=== PATIENT | male | born 1930 | race Caucasian/White ===

== ENCOUNTER 2016-10-26 17:33 | Inpatient (IN) | payer MEDICARE, OTHER ==
[~2016-10-26] VITALS: Ht 182.9 cm; Wt 63.2 kg
[2016-10-26 17:46] VITALS: BP 143/76; PULSE 60; RESP 14; O2SAT 100
[2016-10-26 17:55] VITALS: BP 143/76; PULSE 69; RESP 14; O2SAT 100
--- NOTE | 2016-10-26 18:06 | ED.REPORT ---
HPI-Trauma Minor / Fall Date of Service Oct 26, 2016 ED Provider: Josefina Baumann MD 86 year old male with a hx of Cerebral Amyloid Angiopathy, Multiple CVA's 2009, Lewy body dementia and HTN who presents to the ED via EMS from [facility] following a GLF today. The pt was sitting in a chair with a home performance laborer in the room when he fell backwards and landed on his head. The fall was not directly witnessed but the home performance laborer was at his side immediately after the fall. LOC is unknown. Pt has had no episodes of vomiting. Pt had a fall a few days ago as well. Pt is not on anticoagulants due to previous strokes. En route the patient complained of back pain, but family believes that this was positional because he has had no complaints in the ED. Pt's is at bedside and is able to give a history. Pt is unable to give any history due to his dementia. Nursing Notes Stated Complaint: GLF Chief Complaint: Head, Face, Neck Trauma Nursing Notes Reviewed: Yes Allergies: Coded Allergies: Wheat (Verified Allergy, Severe, HIVES, AIRWAY CLOSURE, 10/26/16) Scheduled Atorvastatin (Lipitor) 40 Mg Tablet 40 MG PO QPM Citalopram (Citalopram) 10 Mg Tablet 10 MG PO DAILY Haloperidol (Haloperidol) 0.5 Mg Tablet 0.5 MG PO QAM Haloperidol (Haloperidol) 0.5 Mg Tablet 0.5 MG PO at 1400 daily Haloperidol (Haloperidol) 0.5 Mg Tablet 1 MG PO HS Lamotrigine (Lamotrigine) 25 Mg Tablet 50 MG PO BID Memantine HCl (Memantine HCl) 5 Mg Tablet 5 MG PO BID Trazodone (Trazodone) 50 Mg Tablet 50 MG PO HS General Time Seen by MD: 18:03 Chief Complaint Head injury Hx Obtained From: Spouse, EMS Arrived By: Ambulance Onset Occurred: Just prior to arrival Symptom Duration: Since onset Caused by: Fall on ground Location: Head Severity: Current: Mild Associated with: Denies: Loss of consciousness, Vomiting Similar Sx Previous: Yes Risk Factors IC Bleed Risk Stratification Age (<1 yr or >60 yrs) Prior epidural bleed Risk factors reviewed Head CT Imaging Inclusion Criteria: >/= 16 yo age Presentation w/in 24 hrs. RF Statements: Risk factors reviewed Past Medical History Past Medical History Cerebral Amyloid Angiopathy Multiple CVA 2010 Lewy body dementia Reports: Hypertension Past Surgical History Reports: Cholecystectomy Reports: Pacemaker insertion Smoking History Former Smoker Social History Alcohol Use: Denies alcohol use Drug Use: Denies drug use Review of Systems Unable to Obtain ROS Patient condition, Mental status Respiratory: Denies: Shortness of breath GI: Denies: Vomiting Physical Exam Initial Vital Signs Vital Signs (First) Date Time Temp Pulse Resp B/P Pulse Ox O2 Delivery O2 Flow Rate FiO2 10/26/16 17:46 36.6 60 14 143/76 100 Room Air Initial VS: Reviewed, Vital signs normal ENT: Conjunctiva normal, No scleral icterus Respiratory: Breath sounds normal, Clear to auscultation, No respiratory distress Cardiovascular: Regular rate & rhythm, Heart sounds normal, Intact distal pulses Abdomen / GI: Soft, Non-tender Extremities: Vascular intact, Neuro intact Skin: Warm, Dry, No cyanosis Neurologic: Alert General/Constitutional: Awake, Alert Neck: Supple, Full range of motion, No midline vertebral tend Head / Eyes: Normocephalic, PERRL 2cm hematoma to the R occipital area. Slight oozing of blood. Back: Inspection NL, No midline vertebral tend Interpretation & Diagnostics CT Head Interpretation IMPRESSION: 1. Right posterior parietal scalp soft tissue swelling, as well as 2 foci of contrecoup posttraumatic subarachnoid hemorrhage adjacent to the anterior left frontal pole. 2. Moderate cerebral volume loss for age. Diffuse periventricular and deep white matter chronic small vessel ischemic change. Findings discussed with Dr. Baumann on 1852 hours on October 26, 2016. Dictated by: Michi Wray M.D. on 10/26/2016 at 18:53 Study: Head CT no contrast Interpretation / Wet Read by: Interpret - Radiologist CT C-Spine Interpretation IMPRESSION: No acute bony injuries of the cervical and upper thoracic spine from the foramen magnum to the T4 level. Dictated by: Michi Wray M.D. on 10/26/2016 at 18:56 Study type: CT no contrast Interpretation / Wet Read by: Interpret - Radiologist Re-Eval/Medical Decision Med Decision/Clinical Course This patient had a fall and was found to have a tramatic subarachnoid hemorrhage , he does not appear to be in discomfort. In speaking with his it was decided to admit him for observation here and repeat CT scan, and any procedures anyone to be comfortable. Re-Evaluation/Progress : Time of Eval: 18:56 Re-Evaluation/Progress Note: updated of imaging results. Needs to talk to family to discuss further care.Pt and family do not want any procedures, they would like to stay here and not be transfered. Will make further decisions based on if he improves or not. Consultation : Referral / Consult Name: Crista Pérez MD Consulted With: Hospitalist Call Returned at: 19:29 Retail Services Professional: Will see patient, Agrees with eval, Agrees with plan, Accepts admit Counseled Regarding: Diagnosis, Need for admission Discharge & Departure Impression: Primary Impression: Subarachnoid hemorrhage Additional Impression: Dementia Dementia type: Lewy body dementia Dementia behavioral disturbance: with behavioral disturbance Qualified Code: G31.83 - Dementia with Lewy bodies Disposition: ADMITTED TO HOSPITAL Discharge Condition All VS Reviewed: Yes Scribe Attestation Portions of this note were transcribed by Dorene Azar. I, (Dr. Baumann) personally performed the history, physical exam and medical decision-making; I reviewed and confirmed the accuracy of the information in the transcribed note. Signed by: Dorene Azar. 10/26/2016, 1945 Josefina Baumann MD Oct 26, 2016 18:06 Dorene Azar Oct 26, 2016 18:13
--- NOTE | 2016-10-26 18:55 | DRSVH ---
PROCEDURE: CT BRAIN WITHOUT CONTRAST ([id number]) INDICATIONS: 86 year-old male status post ground level fall with posterior head laceration. TECHNIQUE: Noncontrast 4.5 mm thick angled axial sections acquired from the foramen magnum to the vertex, with c oronal reformats. COMPARISON: None. FINDINGS: Image quality: Several images are degraded by patient motion. CSF spaces: Basal cisterns are patent. 2 separate foci of hyperdense subarachnoid hemorrhage lie adj acent to the anterior left frontal pole. The ventricles are symmetric in size and shape. Brain: No intracranial bleeds or masses. There is moderate cerebral volume loss for age, with resul tant ventricular and sulcal prominence. There are diffuse periventricular and deep white matter [employer] sera small vessel ischemic changes. There is minimal intracranial internal carotid artery atheroscler osis. Skull and face: Calvarium and visualized facial bones appear intact, without suspicious lesions. The re is right posterior parietal scalp soft tissue swelling. Sinuses: Visualized sinuses and mastoids are clear. IMPRESSION: 1. Right posterior parietal scalp soft tissue swelling, as well as 2 foci of contrecoup posttraumatic subarachnoid hemorrhage adjacent to the anterior left frontal pole. 2. Moderate cerebral volume loss for age. Diffuse periventricular and deep white matter chronic small vessel ischemic change. Findings discussed with Dr. Baumann on 1852 hours on October 26, 2016. Dictated by: Michi Wray M.D. on 10/26/2016 at 18:53 Approved by: Michi Wray M.D. on 10/26/2016 at 18:53
--- NOTE | 2016-10-26 18:58 | DRSVH ---
PROCEDURE: CT CERVICAL SPINE WITHOUT CONTRAST ([id number]) INDICATIONS: 86 year-old male status post ground level fall. TECHNIQUE: Noncontrast 3 mm thick sections acquired from the skull base to the T4 level. Sagittal and coronal r eformats were then constructed. For radiation dose reduction, the following was used: automated exp osure control, adjustment of mA and/or kV according to patient size. COMPARISON: None. FINDINGS: Image quality: Excellent. Bones: No fractures or dislocations. There is multilevel cervical spine disc degeneration, as well as facet joint degeneration. Coronal images demonstrate cervical thoracic spine dextroscoliosis. Visu alized superior ribs are intact. Soft tissues: Prevertebral soft tissues are normal in thickness. No paravertebral hematomas. No ap ical pneumothoraces. There is bilateral carotid bifurcation atherosclerosis. IMPRESSION: No acute bony injuries of the cervical and upper thoracic spine from the foramen magnum t o the T4 level. Dictated by: Michi Wray M.D. on 10/26/2016 at 18:56 Approved by: Michi Wray M.D. on 10/26/2016 at 18:56
[2016-10-26 20:59] VITALS: BP 131/84; PULSE 88; RESP 20; O2SAT 99
[2016-10-26] MEDS ORDERED: Ondansetron 2 mg/mL 2 mL Inj IVPUSH PRN (21:00)
[2016-10-26] MEDS ORDERED: Alum-Mag Hydrox-Simeth 30 mL Suspension PO PRN (21:00)
[2016-10-26] MEDS ORDERED: Polyethylene Glycol (PEG) 17 Gm Powder PO PRN (21:30)
[2016-10-26 21:37] VITALS: BP 147/83; PULSE 68; RESP 18; O2SAT 97
--- NOTE | 2016-10-26 21:57 | PCM.HPMED ---
Subjective Date of Service Oct 26, 2016 Primary Provider: Admitting Physician: Crista Pérez MD Primary Care Physician: Janiya Hobbs MD Attending Physician: Crista Pérez MD Admit Status: From the Emergency Department Chief Complaint: Fall with acute right occipital contusion and left contrecoup subarachnoid hemorrhage History of Present Illness: This is a 86-year-old male with recently progressing dementia who just moved into an assisted living secure unit at [facility] in [place]. Today, in the dining room, he was witnessed to fall out of his chair onto his right occiput. There is no loss of consciousness. There was some bleeding and so he was brought to the emergency department where he was noted to have an abrasion of the right occiput and a small contrecoup subarachnoid hemorrhage of the left frontal area. He is now admitted for observation of this intracerebral bleed and potential discharge back to his assisted living tomorrow. If there is progression neurologically then a neurology consult should be considered in the context of no significant intervention being appropriate at his stage of dementia. Review of Systems: There has been no reported fevers, muscle aches, seizures, new rash, chest pain , shortness of breath, coughing, bleeding, dysuria, new allergies, vomiting, abdominal pain, diarrhea. Allergies Coded Allergies: Wheat (Verified Allergy, Severe, HIVES, AIRWAY CLOSURE, 10/26/16) Home Medications No medication list is available. PMH Lewy body dementia Cerebral amyloid angiopathy Surgical History Appendectomy Cholecystectomy Nonoperative severe chest injury in fall Family History Multiple family members have of DVT/PE. Positive family history of cancer and CVA. Social History Occupation: retired [employer] Hx Alcohol Use: No Hx Substance Use: No Smoking Status: Former Smoker Living Arrangement: Assisted Living ([facility] in [place]) Exam Vital Signs Vital Sign - Last Date Time Temp Pulse Resp B/P Pulse Ox O2 Delivery O2 Flow Rate FiO2 10/26/16 20:59 36.5 88 20 131/84 99 Room Air Exam The patient is confused and talking nonsensically. He follows directions intermittently, and basically only when his of 49 years is speaking directly to him. Pupils are equally round and reactive to light and accommodation. Extraocular muscles cannot be accurately tested due to his lack of understanding. Sclera are pink and nonicteric. Throat looks normal. No lymph nodes are felt her, neck, supraclavicular area. There is no thyromegaly. JVD is less than 6 cm. No carotid bruits are heard. Heart is irregularly irregular without murmur. Lungs are clear to auscultation bilaterally Abdomen is soft, bowel sounds are positive, there is no organomegaly, there is no masses, there is no tenderness. There is a midline incisional scar. Extremities have no ankle edema Skin there is no jaundice or rash. There is a recently bleeding abrasion to the right occiput. Neuro exam is noted for profound dementia. DTRs are symmetric. Babinski's are downgoing bilaterally. There is no tremor. Lab and Diagnostics X-Rays, CTs and MRIs CT BRAIN WITHOUT CONTRAST ([id number]) INDICATIONS: 86 year-old male status post ground level fall with posterior head laceration. TECHNIQUE: Noncontrast 4.5 mm thick angled axial sections acquired from the foramen magnum to the vertex, with coronal reformats. COMPARISON: None. FINDINGS: Image quality: Several images are degraded by patient motion. CSF spaces: Basal cisterns are patent. 2 separate foci of hyperdense subarachnoid hemorrhage lie adjacent to the anterior left frontal pole. The ventricles are symmetric in size and shape. Brain: No intracranial bleeds or masses. There is moderate cerebral volume loss for age, with resultant ventricular and sulcal prominence. There are diffuse periventricular and deep white matter chronic small vessel ischemic changes. There is minimal intracranial internal carotid artery atherosclerosis. Skull and face: Calvarium and visualized facial bones appear intact, without suspicious lesions. There is right posterior parietal scalp soft tissue swelling. Sinuses: Visualized sinuses and mastoids are clear. IMPRESSION: 1. Right posterior parietal scalp soft tissue swelling, as well as 2 foci of contrecoup posttraumatic subarachnoid hemorrhage adjacent to the anterior left frontal pole. 2. Moderate cerebral volume loss for age. Diffuse periventricular and deep white matter chronic small vessel ischemic change. Findings discussed with Dr. Baumann on 1852 hours on October 26, 2016. Additional Diagnostics: CT CERVICAL SPINE WITHOUT CONTRAST ([id number]) INDICATIONS: 86 year-old male status post ground level fall. TECHNIQUE: Noncontrast 3 mm thick sections acquired from the skull base to the T4 level. Sagittal and coronal reformats were then constructed. For radiation dose reduction, the following was used: automated exposure control, adjustment of mA and/or kV according to patient size. COMPARISON: None. FINDINGS: Image quality: Excellent. Bones: No fractures or dislocations. There is multilevel cervical spine disc degeneration, as well as facet joint degeneration. Coronal images demonstrate cervical thoracic spine dextroscoliosis. Visualized superior ribs are intact. Soft tissues: Prevertebral soft tissues are normal in thickness. No paravertebral hematomas. No apical pneumothoraces. There is bilateral carotid bifurcation atherosclerosis. IMPRESSION: No acute bony injuries of the cervical and upper thoracic spine from the foramen magnum to the T4 level. Assessment & Plan 1 - right occipital contusion/left frontal subarachnoid hemorrhage Observe for progression of neurological signs/worsening hemorrhage. If stable then plan transfer back to assisted living secure unit in [place]. 2 - Lewy body dementia This has recently been progressing. He moved into the secure unit 5 days ago. He has apparently failed a recent trial of Namenda.. 3 - family history of blood clots Unable to treat with Lovenox or heparin due to the intracerebral hemorrhage. We will apply compression stockings. Dave Pérez MD Resuscitation Status: DNR/DNI:Do Not Resuscitate/Intubate Crista Pérez MD Oct 26, 2016 21:36
--- NOTE | 2016-10-26 22:14 | NUR ---
ADMIT: Pt. arrived to [facility] from the ED via stretcher. Transferred to bed with sliding board. Pt. confused and disoriented, with Hx of advanced dementia. Has head laceration with some bleeding back of the head and a bump with red bruising above that laceration. Pt. is talkative but does not make sense due to his dementia. Pt's states he has hallucinations often, he is also hallucinating at this time. Sitter at his side for safety. Addendum: 10/27/16 at 0324 by AHMET ZHU RN (NELLY) ADDENDUM: Pt. has a 1:1 sitter at his side at all times for his safety, also the [facility] bed alarm is in place.
[2016-10-26] MEDS ORDERED: LAMO25TA PO (22:33)
[2016-10-26] MEDS ORDERED: LIP40 PO (22:33)
[2016-10-26] MEDS ORDERED: TRAZ-115 PO (22:33)
[2016-10-26] MEDS ORDERED: HAL05 PO ×3 (22:33)
[2016-10-26] MEDS ORDERED: NAM10 PO (22:33)
[2016-10-26] MEDS ORDERED: CITA10TA9 PO (22:33)
[2016-10-26] MEDS ORDERED: MEMA5TAB15 PO (23:07)
[2016-10-27] VITALS (8 sets, daily range): BP systolic 123–160; BP diastolic 70–92; PULSE 60–78; RESP 16–19; O2SAT 92–100
[2016-10-27] MEDS: 0.9% Sodium Chloride 1,000 ML IV SCH ×2 (01:25→12:03)
[2016-10-27 05:43] LABS: BASOPHILS % (AUTO) 0 % (0-3); EOSINOPHILS % (AUTO) 0.2 % (0-5); Mean Corpuscular Hemoglobin 30.7 pg (27.0-35.0); Mean Corpuscular Volume 92.3 fL (81-100); NEUTROPHILS % (AUTO) 75.3 % (40-74); Platelet Count 116 bil/L (150-400)
--- NOTE | 2016-10-27 08:56 | DRSVH ---
PROCEDURE: CT BRAIN WITHOUT CONTRAST INDICATIONS: subarachnoid bleed COMPARISON: [facility], CT, CT BRAIN WO CON, 10/26/2016, 18:20. FINDINGS: When compared to the study dated 10/26/16, the more superior left frontal focus of intracran ial hemorrhage has markedly increased in size. This region now measures 2.4 x 2.8 cm in the axial larry ne and previously measured 1.2 x 2.1 cm in the same plane. A the more inferior left frontal focus of subarachnoid hemorrhage is unchanged. No new intracranial hemorrhage. No midline shift. As 4, there i s severe changes associated with microvascular ischemia including extensive deep white matter and per iventricular changes, extensive volume loss, and right temporal encephalomalacia suggesting prior inf arct. Small subgaleal hemorrhage and soft tissue swelling overlies the right occipital bone, as before. IMPRESSION: 1. Increased size of the more superior focus of left frontal subarachnoid hemorrhage when compared wi th the study from yesterday. This finding was discussed with Dr. Gallardo at 8:54 AM on 10/27/16. Dictated by: Zhane Gruber M.D. on 10/27/2016 at 8:52 Approved by: Zhane Gruber M.D. on 10/27/2016 at 8:54
[2016-10-27 09:40] LABS: BASOPHILS % (AUTO) 0 % (0-3); EOSINOPHILS % (AUTO) 0.2 % (0-5); MONOCYTES % (AUTO) 7.2 % (4-12); Mean Corpuscular Volume 91.6 fL (81-100); NEUTROPHILS % (AUTO) 77.4 % (40-74); Platelet Count 108 bil/L (150-400)
[2016-10-27 09:50] LABS: INR 1.04 ratio
[2016-10-27 10:04] LABS: Magnesium 1.7 mg/dL (1.6-2.6); Phosphorus 2.7 mg/dL (2.5-4.9)
[2016-10-27] MEDS: lamoTRIgine 25 mg Tablet PO SCH ×2 (10:12→21:22)
--- NOTE | 2016-10-27 12:59 | NUR ---
Tests/mentation Patient remains fairly at baseline from history obtained. Patient with severe dementia and hallucinations at times which is how he is this am. Patient had Ct scan done today which showed increase in subarachnoid bleed so patient is to be moved to another room for care by a PCC nurse who can give ordered bp gtt . I spoke with on phone this am and has updated patients daughter on condition.
[2016-10-27] MEDS: NiCARdipine Inj 25 MG in Dextrose 5% 240 ML IV SCH ×3 (13:55→21:01)
--- NOTE | 2016-10-27 17:43 | NUR ---
BLOOD PRESSURE P-Patient has subarachnoid bleed, and orders for Nicardipine drip if BP greater 140/90. Patient has 1:1 sitter has pulled out his IV once and has dementia (LOC x!). At time uncooperative with care. I- Last BP's have been 142/90, 123/72, and 143/70. Nurse has not started drip. E- Will continue to take BP Q4, patient has just pulled out IV for second time, may require restraints if he is to require drip.
--- NOTE | 2016-10-27 18:10 | PCM.PNMED ---
Subjective Date of Service Oct 27, 2016 Subjective Patient continues to be confused. At baseline as per daughter at bedside. CT scan shows worsening of bleeding. Blood pressure uncontrolled overnight. Started amlodipine. Initially planned to start Cardene drip but blood pressure controlled now. called and requesting hospice evaluation. landing worker to call Hospice Exam Vital Signs Vital Sign - Last Date Time Temp Pulse Resp B/P Pulse Ox O2 Delivery O2 Flow Rate FiO2 10/27/16 16:30 36.6 72 16 143/70 92 Room Air Intake and Output 10/26/16 10/26/16 10/27/16 Cumulative From/Thru 15:00 23:00 07:00 10/26/16 17:55 - 10/27/16 06:00 Intake Total 877 ml 877 ml Balance 877 ml 877 ml Intake Oral 400 ml 400 ml IV Total 477 ml 477 ml # Voids 1 1 # Bowel Movements 0 0 Exam The patient is confused and talking nonsensically. He follows directions intermittently, and basically only when his of 49 years is speaking directly to him. Pupils are equally round and reactive to light and accommodation. Extraocular muscles cannot be accurately tested due to his lack of understanding. Sclera are pink and nonicteric. Throat looks normal. No lymph nodes are felt her, neck, supraclavicular area. There is no thyromegaly. JVD is less than 6 cm. No carotid bruits are heard. Heart is irregularly irregular without murmur. Lungs are clear to auscultation bilaterally Abdomen is soft, bowel sounds are positive, there is no organomegaly, there is no masses, there is no tenderness. There is a midline incisional scar. Extremities have no ankle edema Skin there is no jaundice or rash. There is a recently bleeding abrasion to the right occiput. Neuro exam is noted for profound dementia. DTRs are symmetric. Babinski's are downgoing bilaterally. There is no tremor. IVs and Medications Medications Reviewed: Medications were reviewed in detail Lab and Diagnostics Result Diagram: 10/27/1692910/27/16 0930 X-Rays, CTs and MRIs CT BRAIN WITHOUT CONTRAST ([id number]) INDICATIONS: 86 year-old male status post ground level fall with posterior head laceration. TECHNIQUE: Noncontrast 4.5 mm thick angled axial sections acquired from the foramen magnum to the vertex, with coronal reformats. COMPARISON: None. FINDINGS: Image quality: Several images are degraded by patient motion. CSF spaces: Basal cisterns are patent. 2 separate foci of hyperdense subarachnoid hemorrhage lie adjacent to the anterior left frontal pole. The ventricles are symmetric in size and shape. Brain: No intracranial bleeds or masses. There is moderate cerebral volume loss for age, with resultant ventricular and sulcal prominence. There are diffuse periventricular and deep white matter chronic small vessel ischemic changes. There is minimal intracranial internal carotid artery atherosclerosis. Skull and face: Calvarium and visualized facial bones appear intact, without suspicious lesions. There is right posterior parietal scalp soft tissue swelling. Sinuses: Visualized sinuses and mastoids are clear. IMPRESSION: 1. Right posterior parietal scalp soft tissue swelling, as well as 2 foci of contrecoup posttraumatic subarachnoid hemorrhage adjacent to the anterior left frontal pole. 2. Moderate cerebral volume loss for age. Diffuse periventricular and deep white matter chronic small vessel ischemic change. Findings discussed with Dr. Baumann on 1852 hours on October 26, 2016. ROCEDURE: CT BRAIN WITHOUT CONTRAST INDICATIONS: subarachnoid bleed COMPARISON: [facility], CT, CT BRAIN WO CON, 10/26/2016, 18:20. FINDINGS: When compared to the study dated 10/26/16, the more superior left frontal focus of intracranial hemorrhage has markedly increased in size. This region now measures 2.4 x 2.8 cm in the axial plane and previously measured 1.2 x 2.1 cm in the same plane. A the more inferior left frontal focus of subarachnoid hemorrhage is unchanged. No new intracranial hemorrhage. No midline shift. As 4, there is severe changes associated with microvascular ischemia including extensive deep white matter and periventricular changes, extensive volume loss, and right temporal encephalomalacia suggesting prior infarct. Small subgaleal hemorrhage and soft tissue swelling overlies the right occipital bone, as before. IMPRESSION: 1. Increased size of the more superior focus of left frontal subarachnoid hemorrhage when compared with the study from yesterday. This finding was discussed with Dr. Gallardo at 8:54 AM on 10/27/16. Dictated by: Zhane Gruber M.D. on 10/27/2016 at 8:[address] CERVICAL SPINE WITHOUT CONTRAST ([id number]) INDICATIONS: 86 year-old male status post ground level fall. TECHNIQUE: Noncontrast 3 mm thick sections acquired from the skull base to the T4 level. Sagittal and coronal reformats were then constructed. For radiation dose reduction, the following was used: automated exposure control, adjustment of mA and/or kV according to patient size. COMPARISON: None. FINDINGS: Image quality: Excellent. Bones: No fractures or dislocations. There is multilevel cervical spine disc degeneration, as well as facet joint degeneration. Coronal images demonstrate cervical thoracic spine dextroscoliosis. Visualized superior ribs are intact. Soft tissues: Prevertebral soft tissues are normal in thickness. No paravertebral hematomas. No apical pneumothoraces. There is bilateral carotid bifurcation atherosclerosis. IMPRESSION: No acute bony injuries of the cervical and upper thoracic spine from the foramen magnum to the T4 level. Assessment & Plan 1 - right occipital contusion/left frontal subarachnoid hemorrhage -Continued bleeding or repeat CT scan. -Blood pressure uncontrolled overnight. Started amlodipine. Initially planned to start Cardene drip but blood pressure controlled now. Cardene drip available at bedside. Will start if blood pressure uncontrolled. called and requesting hospice evaluation. She lives in the same facility with him. She wants him back to the same facility upon discharge. landing worker to call Hospice -No blood thinners reverse. INR 1 -Neurochecks every 4 2 - Lewy body dementia This has recently been progressing. He moved into the secure unit 5 days ago. He has apparently failed a recent trial of Namenda.. 3 - family history of blood clots Unable to treat with Lovenox or heparin due to the intracerebral hemorrhage. We will apply compression stockings. Disposition: 1-2 days, if blood pressure remains controlled and CT control shows stable hematoma. Hospice Evaluation pending Resuscitation Status: DNR/DNI:Do Not Resuscitate/Intubate Lauri Corona MD Oct 27, 2016 18:10
--- NOTE | 2016-10-27 20:22 | NUR ---
BP Md made aware of BP 152/85 and 152/80. Unable to start IV Nicardipine on this floor and need CCU care for that. Md agreed and order to transfer to CCU noted. Report given to Yokasta. Will transfer to room 2020
--- NOTE | 2016-10-27 20:46 | NUR ---
Transfer to 2020 Pt transferred with all meds, chart and belonging to room 2020. Transfer care to [facility].
--- NOTE | 2016-10-27 22:11 | NUR ---
Transfer note: Pt received into room 2020 at 2045 from [facility] room 1019 per bed. Pt was lift onto CCU bed and made comfortable. Pt is very combative swings fist and arm trying to hit staff and kicks legs at staff swearing and yelling. Pt has bilateral soft wrist restraints in place due to combativeness and pulling out IVs. Pt has pulled 2 IVs out prior to transfer. Monitor applied shows A-fib with occasional paced beat. Pt has brief on and is incontinent of urine. BP is 150s/90s and Nicardipine gtt was started as ordered at 5mg/hr BPs have dropped down into range goal is to keep BP below 140/90 due to subarachnoid bleed in the frontal area. Pt was given PO haldol 1mg and trazodone. will continue to assess agitation and uncooperativeness.
[2016-10-27] MEDS ORDERED: Haloperidol 5 mg/mL Inj IM ONE (22:50)
[2016-10-28] VITALS (8 sets, daily range): BP systolic 107–140; BP diastolic 58–78; PULSE 55–91; RESP 10–22; O2SAT 92–99
[2016-10-28] MEDS: NiCARdipine Inj 25 MG in Dextrose 5% 240 ML IV SCH ×3 (00:51→09:09)
[2016-10-28] MEDS: lamoTRIgine 25 mg Tablet PO SCH ×2 (08:47→22:12)
--- NOTE | 2016-10-28 10:52 | NUR ---
Spoke with Krys at [place] and she is aware patient is coming back to Memory Care unit there and they can only accept if Hospice is agreed upon and they will accept the day hospice can open but not before. Patient will also need to move up to the next level of care due to recent falls. In the month of September there was 17 falls. has been informed about these changed by the facility. Hospice will be in to meet with family and patient today. Updated CUTTER HAND
--- NOTE | 2016-10-28 12:37 | NUR ---
Narcadamine Narcadamine drip turned off this am around 0900. BP currently 107/63. Transfer out of CCU and moved to room 2030. Report given to Rebecca Thompson RN.
--- NOTE | 2016-10-28 15:41 | PCM.PNMED ---
Subjective Date of Service Oct 28, 2016 Subjective The patient unable to speak. Severe dementia and a recent subarachnoid hemorrhage. ROS and subjective not obtainable Exam Vital Signs Vital Sign - Last Date Time Temp Pulse Resp B/P Pulse Ox O2 Delivery O2 Flow Rate FiO2 10/28/16 11:49 36.7 62 18 124/75 92 Room Air Intake and Output 10/27/16 10/27/16 10/28/16 Cumulative From/Thru 15:00 23:00 07:00 10/26/16 17:55 - 10/28/16 05:19 Intake Total 450 ml 490 ml 1817 ml Balance 450 ml 490 ml 1817 ml Intake Oral 450 ml 100 ml 950 ml IV Total 390 ml 867 ml # Voids 3 2 6 # Bowel Movements 0 0 Exam Patient appears to be comfortable. Spell is normal Lungs are clear, normal effort. Heart is regular without murmur gallop or rub Abdomen is soft nondistended Extremities are free of edema. The pedal and radial pulses. Patient moves all arms and legs to noxious stimuli. IVs and Medications Medications Reviewed: Medications were reviewed in detail Lab and Diagnostics Result Diagram: 10/27/16 0930 10/27/16 0930 X-Rays, CTs and MRIs CT BRAIN WITHOUT CONTRAST ([id number]) INDICATIONS: 86 year-old male status post ground level fall with posterior head laceration. TECHNIQUE: Noncontrast 4.5 mm thick angled axial sections acquired from the foramen magnum to the vertex, with coronal reformats. COMPARISON: None. FINDINGS: Image quality: Several images are degraded by patient motion. CSF spaces: Basal cisterns are patent. 2 separate foci of hyperdense subarachnoid hemorrhage lie adjacent to the anterior left frontal pole. The ventricles are symmetric in size and shape. Brain: No intracranial bleeds or masses. There is moderate cerebral volume loss for age, with resultant ventricular and sulcal prominence. There are diffuse periventricular and deep white matter chronic small vessel ischemic changes. There is minimal intracranial internal carotid artery atherosclerosis. Skull and face: Calvarium and visualized facial bones appear intact, without suspicious lesions. There is right posterior parietal scalp soft tissue swelling. Sinuses: Visualized sinuses and mastoids are clear. IMPRESSION: 1. Right posterior parietal scalp soft tissue swelling, as well as 2 foci of contrecoup posttraumatic subarachnoid hemorrhage adjacent to the anterior left frontal pole. 2. Moderate cerebral volume loss for age. Diffuse periventricular and deep white matter chronic small vessel ischemic change. Findings discussed with Dr. Baumann on 1852 hours on October 26, 2016. ROCEDURE: CT BRAIN WITHOUT CONTRAST INDICATIONS: subarachnoid bleed COMPARISON: [facility], CT, CT BRAIN WO CON, 10/26/2016, 18:20. FINDINGS: When compared to the study dated 10/26/16, the more superior left frontal focus of intracranial hemorrhage has markedly increased in size. This region now measures 2.4 x 2.8 cm in the axial plane and previously measured 1.2 x 2.1 cm in the same plane. A the more inferior left frontal focus of subarachnoid hemorrhage is unchanged. No new intracranial hemorrhage. No midline shift. As 4, there is severe changes associated with microvascular ischemia including extensive deep white matter and periventricular changes, extensive volume loss, and right temporal encephalomalacia suggesting prior infarct. Small subgaleal hemorrhage and soft tissue swelling overlies the right occipital bone, as before. IMPRESSION: 1. Increased size of the more superior focus of left frontal subarachnoid hemorrhage when compared with the study from yesterday. This finding was discussed with Dr. Gallardo at 8:54 AM on 10/27/16. Dictated by: Zhane Gruber M.D. on 10/27/2016 at 8:[address] CERVICAL SPINE WITHOUT CONTRAST ([id number]) INDICATIONS: 86 year-old male status post ground level fall. TECHNIQUE: Noncontrast 3 mm thick sections acquired from the skull base to the T4 level. Sagittal and coronal reformats were then constructed. For radiation dose reduction, the following was used: automated exposure control, adjustment of mA and/or kV according to patient size. COMPARISON: None. FINDINGS: Image quality: Excellent. Bones: No fractures or dislocations. There is multilevel cervical spine disc degeneration, as well as facet joint degeneration. Coronal images demonstrate cervical thoracic spine dextroscoliosis. Visualized superior ribs are intact. Soft tissues: Prevertebral soft tissues are normal in thickness. No paravertebral hematomas. No apical pneumothoraces. There is bilateral carotid bifurcation atherosclerosis. IMPRESSION: No acute bony injuries of the cervical and upper thoracic spine from the foramen magnum to the T4 level. Assessment & Plan 1 - subarachnoid hemorrhage. The patient appears to be clinically stable. This was traumatic. Nicardipine was apparently put up for blood pressure control of patient's normotensive now. He has not really been shown to decrease vasospasm and traumatic subarachnoid versus medical subarachnoid 1 where it has. At this point we will discontinue nicardipine. We will aim for oral meds for blood pressure control. 2 - Lewy body dementia This has recently been progressing. He moved into the secure unit 5 days ago. He has apparently failed a recent trial of Namenda.. 3 - family history of blood clots Unable to treat with Lovenox or heparin due to the intracerebral hemorrhage. We will apply compression stockings. Spoke with family about difficulty a prognosis given the small subarachnoid hemorrhage. In any case they have requested hospice. There is seen the patient today and then we will begin the plan discharge with hospice back to his facility. Social work is helping with this. Disposition: 1-2 days, if blood pressure remains controlled and CT control shows stable hematoma. Hospice Evaluation pending Pain Evaluation: Adequate Pain Control VTE Mechanical Devices: Intermittant Pneumatic CD Resuscitation Status: DNR/DNI:Do Not Resuscitate/Intubate Time spent 25 minute James Kay MD Oct 28, 2016 15:40
--- NOTE | 2016-10-28 15:58 | NUR ---
Family Visit Patient's family arrived to meet with Hospice. Asked to speak with MD as well. Patient still resting. MD notified, in room talking with patient.
--- NOTE | 2016-10-28 18:00 | NUR ---
Social Work Note: Screen Note Data& Assessment: Branden Fuentes is a 86 year old male admitted on 10/26/2016 for subarachnoid hemorrhage. Pt has [facility] and [facility] Uniform Med Plan Supplement. Pt sees Janiya Hobbs MD for primary care. Pt lives at [facility] living [facility] on their secure dementia unit. Per pt requested Hospice info visit. Hospice SW met with pt and pt family at bedside. Pt has signed consents to open with hospice services. Per [facility], pt is not able to return to the facility until Hospice opens services with the pt. SW spoke to Caroline at hospice and confirmed that they do not have current availability to open services until Wednesday but they might have a sooner opening. SW to follow up with hospice services regarding final opening date and time. SW to continue to follow. Plan: Anticipated discharge back to [facility] when medically ready and when hospice is able to open services. SW to follow up with hospice services regarding final opening date and time. SW to continue to follow. GYPSY [place]
[2016-10-29] VITALS (8 sets, daily range): BP systolic 103–154; BP diastolic 64–84; PULSE 60–109; RESP 18–22; O2SAT 92–98
--- NOTE | 2016-10-29 06:19 | NUR ---
confusion pt with some confusion, he would have random conversation at times hard to understand and other times be able to answer sinple questions. doesn't follow direction, and keeps his eye closed, when ask him to open he dose not. q2 hour turning, pt dose wiggle off the pillows often or kick them off the bed, restraints still in place to protect lines. updated last night
[2016-10-29] MEDS: lamoTRIgine 25 mg Tablet PO SCH ×2 (10:17→21:54)
--- NOTE | 2016-10-29 10:44 | NUR ---
Eating Patient able to eat 90% of Cream of Wheat and 10 bites of vanilla pudding. Unable to follow commands, will open mouth if this RN touches spoon to bottom lip. Patient cooperative with eating and 8 green swabbies. Care continues, patient sleeping at this time.
--- NOTE | 2016-10-29 12:06 | NUR ---
KAYCE Signed t/c to pt's spouse; verbal consent to sign
--- NOTE | 2016-10-29 12:06 | NUR ---
Social Work: Continued Discharge Planning D: Pt discussed in morning rounds. Pt is medically stable for discharge back to [facility] when hospice can open. t/c to Hospice. They soonest they can open is on Wednesday morning at 10:00 am. They are working with [facility] to deliver equipment. t/c to [facility]. ELECTRICAL LINESWORKER spoke with Radha who states that the pt would likely require a bedside assessment prior to return. ELECTRICAL LINESWORKER requested that she call Vivi as previous notes suggest that family and pt are already aware that pt will require a higher level of care due to recent falls. She is going to page Vivi and have her contact ELECTRICAL LINESWORKER directly to discuss pt's acceptance back to [facility]. A: Pt who is currently on end of life care. P: Anticipate pt to discharge back to [facility] pending input from [facility]; Pt to likely transport via BLS due to dementia, end of life care and safety to self. ELECTRICAL LINESWORKER to update MD with final disposition and plan. GYPSY Mcdonald Addendum: 10/29/16 at 1629 by DION PEREIRA SS ELECTRICAL LINESWORKER received voicemail from Krys at [facility]. She is not working today and states that they would need to complete bedside assessment. She requested that ELECTRICAL LINESWORKER contact her tomorrow during her working business hours to discuss dcp. ELECTRICAL LINESWORKER and CINTHYA both attempted contact with her at the phone number she left message from ([phone]); messages left attempting to discuss bedside assessment. No answer. MD and Hospice of the updated that dcp for tomorrow is not feasible at this time due to Xi's need for bedside assessment.
--- NOTE | 2016-10-29 13:55 | PCM.PNMED ---
Subjective Date of Service Oct 29, 2016 Subjective The patient is nonverbal. He has severe dementia. He is probably close to his baseline. Exam Vital Signs Vital Sign - Last Date Time Temp Pulse Resp B/P Pulse Ox O2 Delivery O2 Flow Rate FiO2 10/29/16 11:54 36.7 60 18 137/84 97 Room Air Intake and Output 10/28/16 10/28/16 10/29/16 Cumulative From/Thru 14:59 22:59 06:59 10/26/16 17:55 - 10/29/16 06:40 Intake Total 100 ml 394 ml 2311 ml Balance 100 ml 394 ml 2311 ml Intake Oral 100 ml 120 ml 1170 ml IV Total 274 ml 1141 ml # Voids 2 2 10 # Bowel Movements 0 Exam The patient appears comfortable. Normal skull. Symmetric pupils Normal nose and ears Oropharynx free of drip. Neck is supple. Lungs are clear, normal effort. Heart is regular without murmur gallop or rub Abdomen soft nondistended External edema good pedal pulses Neurologically patient moves arms and legs spontaneously. IVs and Medications Medications Reviewed: Medications were reviewed in detail Lab and Diagnostics Result Diagram: 10/27/16 0930 10/27/16 0930 Additional Diagnostics Assessment & Plan 1. Nontraumatic subarachnoid hemorrhage. POA. The patient appears to be clinically stable. Serial CT scans indicated mild worsening of his subarachnoid. He will however shows no evidence of vasospasm or other neurologic signs. 2. Dementia. POA. Stable. He is a stim diet with assistance 1-1 which is his baseline. 3. Discharge planning the patient is going to be initiated with hospice and discharged to his care facility with coordination with hospice contingent upon their ability to open. Pain Evaluation: Adequate Pain Control VTE Mechanical Devices: Intermittant Pneumatic CD Resuscitation Status: CPR: Attempt Resuscitation Time spent 20 minute James Kay MD Oct 29, 2016 13:55 atherosclerosis. Skull and face: Calvarium and visualized facial bones appear intact, without suspicious lesions. There is right posterior parietal scalp soft tissue swelling. Sinuses: Visualized sinuses and mastoids are clear. IMPRESSION: 1. Right posterior parietal scalp soft tissue swelling, as well as 2 foci of contrecoup posttraumatic subarachnoid hemorrhage adjacent to the anterior left frontal pole. 2. Moderate cerebral volume loss for age. Diffuse periventricular and deep white matter chronic small vessel ischemic change. Findings discussed with Dr. Baumann on 1852 hours on October 26, 2016. ROCEDURE: CT BRAIN WITHOUT CONTRAST INDICATIONS: subarachnoid bleed COMPARISON: [facility], CT, CT BRAIN WO CON, 10/26/2016, 18:20. FINDINGS: When compared to the study dated 10/26/16, the more superior left frontal focus of intracranial hemorrhage has markedly increased in size. This region now measures 2.4 x 2.8 cm in the axial plane and previously measured 1.2 x 2.1 cm in the same plane. A the more inferior left frontal focus of subarachnoid hemorrhage is unchanged. No new intracranial hemorrhage. No midline shift. As 4, there is severe changes associated with microvascular ischemia including extensive deep white matter and periventricular changes, extensive volume loss, and right temporal encephalomalacia suggesting prior infarct. Small subgaleal hemorrhage and soft tissue swelling overlies the right occipital bone, as before. IMPRESSION: 1. Increased size of the more superior focus of left frontal subarachnoid hemorrhage when compared with the study from yesterday. This finding was discussed with Dr. Gallardo at 8:54 AM on 10/27/16. Dictated by: Zhane Gruber M.D. on 10/27/2016 at 8:[address] CERVICAL SPINE WITHOUT CONTRAST ([id number]) INDICATIONS: 86 year-old male status post ground level fall. TECHNIQUE: Noncontrast 3 mm thick sections acquired from the skull base to the T4 level. Sagittal and coronal reformats were then constructed. For radiation dose reduction, the following was used: automated exposure control, adjustment of mA and/or kV according to patient size. COMPARISON: None. FINDINGS: Image quality: Excellent. Bones: No fractures or dislocations. There is multilevel cervical spine disc degeneration, as well as facet joint degeneration. Coronal images demonstrate cervical thoracic spine dextroscoliosis. Visualized superior ribs are intact. Soft tissues: Prevertebral soft tissues are normal in thickness. No paravertebral hematomas. No apical pneumothoraces. There is bilateral carotid bifurcation atherosclerosis. IMPRESSION: No acute bony injuries of the cervical and upper thoracic spine from the foramen magnum to the T4 level. Assessment & Plan 1. Nontraumatic subarachnoid hemorrhage. POA. The patient appears to be clinically stable. Serial CT scans indicated mild worsening of his subarachnoid. He will however shows no evidence of vasospasm or other neurologic signs. 2. Dementia. POA. Stable. He is a stim diet with assistance 1-1 which is his baseline. 3. Discharge planning the patient is going to be initiated with hospice and discharged to his care facility with coordination with hospice contingent upon their ability to open. Pain Evaluation: Adequate Pain Control VTE Mechanical Devices: Intermittant Pneumatic CD Resuscitation Status: CPR: Attempt Resuscitation Time spent 20 minute Jmaes Kay MD Oct 29, 2016 13:55
--- NOTE | 2016-10-29 14:44 | NUR ---
Called and left message for Krys from [facility] on personal # [phone]. Let her know we are needing to talk to her about mutual patient and plans for him to return as soon as possible. Hospice now has an opening tomorrow. [employer] ADMIN[employer]RATOR was aware and asked for help with follow up
--- NOTE | 2016-10-29 16:14 | NUR ---
NUTRITION ASSESSMENT Assess: 86 yo M admitted w/ subarachnoid hemorrhage. ST recommending stimulation diet. Pt to d/c on hospice when opening available, likely 1-2 days. PMHx: Dementia, Cerebral amyloid angiopathy LABS: Reviewed MEDICATIONS: Reviewed DIET: Stimulation, PO 0-50% (refused x2) GI symptoms/stool: No BM recorded Skin integrity: No issues reported; Dilip: 21 ANTHROPOMETRICS: Current Wt: 67 kg BMI: 20 kg/m3Xkopy Wt: 65.2 kg IBW: 80.9 kgRecent wt changes: None noted ESTIMATED NEEDS: Calories: 3578-0994 kcal/d (25-30 kcal/kg/d) Protein: 70-100 g/d (1-1.5 g/kg/d) Fluids: 5995-2279 ml/d (25-30 ml/kg/d) NUTRITION DIAGNOSIS: 1) Chewing/swallowing difficulty related to mentation as evidenced by dementia. INTERVENTION: 1) Diet per ST recommendations. MONITOR/EVALUATE: PO intake, Labs, GI, Nutrition status, POC. Will follow per moderate nutrition risk guidelines.
--- NOTE | 2016-10-29 19:18 | NUR ---
Nutrition/Restraints Patient ate 100% of breakfast for this RN, and 100% lunch for . Patient still trys to pull IV out, constant checks every hour, watching patient from window as well. Patient agitated off and on today. Calms down when or family at bedside. Patient unable to follow or acknowledge commands. Care continues.
[2016-10-30] VITALS (7 sets, daily range): BP systolic 112–151; BP diastolic 69–86; PULSE 60–80; RESP 16–20; O2SAT 96–98
--- NOTE | 2016-10-30 01:18 | NUR ---
Nutrition/Oral care Pt took 2030 medications with applesauce and requested more food, pt also ate after a half cup of chocolate pudding. No signs of choking, pocketing, or aspiration. Oral care done with sponge and mouth moisturizer given.
--- NOTE | 2016-10-30 08:08 | PCM.PNMED ---
Subjective Date of Service Oct 30, 2016 Subjective Non verbal Exam Vital Signs Vital Sign - Last Date Time Temp Pulse Resp B/P Pulse Ox O2 Delivery O2 Flow Rate FiO2 10/30/16 04:35 60 10/30/16 03:04 36.2 20 112/69 96 Room Air Intake and Output 10/29/16 10/29/16 10/30/16 Cumulative From/Thru 15:00 23:00 07:00 10/26/16 17:55 - 10/30/16 06:44 Intake Total 343 ml 557 ml 3211 ml Output Total 4 ml 4 ml Balance 343 ml 553 ml 3207 ml Intake Oral 240 ml 460 ml 1870 ml IV Total 103 ml 97 ml 1341 ml Output Urine/Stool Mix 4 ml 4 ml # Voids 2 12 # Bowel Movements 0 Exam Somnolent. Normal skull Lungs clear, normal effort CV regular Abdomen soft No edema No rash IVs and Medications Medications Reviewed: Medications were reviewed in detail Lab and Diagnostics Result Diagram: 10/27/16 0930 10/27/16 0930 Additional Diagnostics Assessment & Plan 1. Nontraumatic subarachnoid hemorrhage. POA. The patient appears to be clinically stable. Serial CT scans indicated mild worsening of his subarachnoid. He will however shows no evidence of vasospasm or other neurologic signs.No clinical changes noted. 2. Dementia. POA. Stable. He is a stim diet with assistance 1-1 which is his baseline. 3. Discharge planning the patient is going to be initiated with hospice and discharged to his care facility with coordination with hospice contingent upon their ability to open. VTE Mechanical Devices: Intermittant Pneumatic CD Resuscitation Status: CPR: Attempt Resuscitation Time spent 20 minutes James Kay MD Oct 30, 2016 08:08
[2016-10-30] MEDS: lamoTRIgine 25 mg Tablet PO SCH ×2 (11:48→20:30)
--- NOTE | 2016-10-30 12:54 | NUR ---
Social Work: Continued Discharge Planing D: Pt discussed in morning rounds. MECHANICAL LEAD was unable to secure a bed for pt at [facility] yesterday as MECHANICAL LEAD recieved voicemail from [facility] stating pt requires bedside assessment. MECHANICAL LEAD has attempted to contact [facility] staff to determine when a bedside assessment can be completed. Pt's discharge hinges on this assessment. MECHANICAL LEAD has left three messages for [facility] today. Staff assure MECHANICAL LEAD that she is receiving messages, understand the urgency and will call MECHANICAL LEAD back as soon as possible. A: Pt who is currently comfort care P: Anticipate pt to discharge back to [facility] pending bedside assessment and hospice intake appointment. MECHANICAL LEAD to continue to reach out to [facility] until questions are answered. GYPSY Mcdonald
--- NOTE | 2016-10-30 14:18 | NUR ---
Called [facility] and let them know I was needing to speak with Krys urgently, there is a mutual patient and we need to make a plan for him to return as soon as possible. There was mention of a bedside assessment needed and we need to make sure this happens today. Patient needs to discharge with hospice tomorrow.
--- NOTE | 2016-10-30 14:36 | NUR ---
Restraints Patient restraints removed at approximately 1100. Patient is not pulling at IVs or interfering with care. at bedside, educated emotionally impaired teacher light if needs this RN. Patient resting comfortably, care continues.
--- NOTE | 2016-10-30 16:05 | NUR ---
Social Work: Continued Discharge Planning D: SUPERVISOR MODEL MAKING received t/c back from Krys at [facility]. They do not feel they can manage the pt care even with hospice support in place. They are declining to accept pt back and state they have already spoken with the about this. They state that the would like he pt to go to [facility] or [facility] so that she is closer to him. SUPERVISOR MODEL MAKING spoke with pt's to confirm preference for [facility] or [facility]. ASSEMBLER ERECTOR provide referrals to [facility] and [facility]. A: Pt who is currently on comfort care. P: Anticipate pt to either discharge to [facility] or [facility] on Comfort Care. GYPSY Mcdonald
--- NOTE | 2016-10-30 16:46 | NUR ---
Gave access to [facility] per PER DIEM CLERK, Xi is no stating they can not accept patient back even with hospice. New plan in progress, patient came out of restraints this morning and is being moved to [facility]. Patient was in restraints strictly for IV placement and making sure it stayed. He has had no documented behaviors and is now restraint free. PER DIEM CLERK is also aware of what is happening at this time. Addendum: 10/30/16 at 1653 by PAYTON MARIE CM [facility] can accept with [facility] to follow. Updated PER DIEM CLERK
--- NOTE | 2016-10-31 00:18 | NUR ---
Transfer to [facility] Patient arrived to [facility] at 1930 and settled in to room 248-1. Patient oriented to self only. Room air. Frequent mumbling speech; appears to be talking to self. Answers questions from nursing staff but answers do not always relate to the questions being asked. Mepilex in place on sacrum. Sitter at bedside for safety. Continue to monitor.
[2016-10-31 05:50] VITALS: BP 146/73; PULSE 60; RESP 18; O2SAT 96
--- NOTE | 2016-10-31 08:30 | NUR ---
KAYCE signed Verbal consent to sign by pt's spouse. GYPSY Rios
[2016-10-31 08:57] VITALS: BP 120/68; PULSE 58; RESP 18; O2SAT 95
[2016-10-31] MEDS: lamoTRIgine 25 mg Tablet PO SCH (09:14)
--- NOTE | 2016-10-31 11:53 | NUR ---
Social Work: Readiness for d/c Data: Pt is on day 5 of hospitalization. EMR reviewed, pt discussed in rounds. states pt likely ready for d/c today. EMISSIONS INSPECTOR called [facility] to make a d/c plan and set up transportation. EMISSIONS INSPECTOR left a message and awaiting phone call back. EMISSIONS INSPECTOR also attempted calling [facility] main line which did not have a live person answer either. EMISSIONS INSPECTOR will continue to follow. Assessment: Pt with dementia. Plan: Pt will likely d/c to [facility] SNF today. EMISSIONS INSPECTOR awaiting phone call back from facility. EMISSIONS INSPECTOR will continue to follow. GYPSY Rios
--- NOTE | 2016-10-31 12:28 | NUR ---
Social Work: Continued d/c planning Data: [facility] called [facility] back stating they do not have a bed available for pt today. FACETER called [facility] and left a message with them regarding if they can accept pt today. FACETER called pt's spouse, no answer. FACETER spoke with pt's RN who states pt's spouse in in the room. FACETER will meet with pt and spouse regarding d/c plan and expanding the SNF search. Assessment: Pt who has dementia. Plan: Pt will likely d/c to SNF, [facility] accepted but does not have a bed available. FACETER waiting call back from [facility] regarding acceptance and bed availability and will speak with spouse about other options. FACETER will continue to follow. GYPSY Rios
--- NOTE | 2016-10-31 12:47 | PCM.PNMED ---
Subjective Date of Service Oct 31, 2016 Subjective Patient is nonverbal. He appears comfortable. No problems overnight. Exam Vital Signs Vital Sign - Last Date Time Temp Pulse Resp B/P Pulse Ox O2 Delivery O2 Flow Rate FiO2 10/31/16 08:57 37.1 58 18 120/68 95 Room Air Intake and Output 10/30/16 10/30/16 10/31/16 Cumulative From/Thru 15:00 23:00 07:00 10/26/16 17:55 - 10/31/16 06:19 Intake Total 0 ml 111 ml 3322 ml Output Total 4 ml Balance 0 ml 111 ml 3318 ml Intake Oral 0 ml 0 ml 1870 ml IV Total 111 ml 1452 ml Output Urine/Stool Mix 4 ml # Voids 4 1 17 # Bowel Movements 1 1 Exam Patient is comfortable. Nonverbal. Normal scalp Neck is supple normal JVP. Lungs are clear and normal effort Heart is irregular without murmur Abdomen is soft nondistended Extremities are free of edema Good pedal pulses. IVs and Medications Medications Reviewed: Medications were reviewed in detail Lab and Diagnostics Result Diagram: 10/27/16 0930 10/27/16 0930 Additional Diagnostics Assessment & Plan 1. Nontraumatic subarachnoid hemorrhage. POA. Patient appears to be clinically stable. No change to management. His blood pressure is well controlled and there are no neurologic symptoms. 2. Dementia. POA. Stable. He is a stim diet with assistance 1-1 which is his baseline. 3. Discharge planning the patient is going to be initiated with hospice and discharged to his care facility with coordination with hospice contingent upon their ability to open. VTE Mechanical Devices: Intermittant Pneumatic CD Resuscitation Status: DNR/DNI:Do Not Resuscitate/Intubate Time spent 20 minutes aJmes Kay MD Oct 31, 2016 12:47
--- NOTE | 2016-10-31 13:06 | NUR ---
Social Work: Continued d/c planning Data: Pt is on day 5 of hospitalization. NURSES SUPERINTENDENT spoke with pt's spouse who was agreeable to sending referrals to [facility] and [facility]. NURSES SUPERINTENDENT referred pt to both locations, and awaiting phone calls back regarding if they can accept and availability. NURSES SUPERINTENDENT will continue to follow. GYPSY Rios
[2016-10-31 13:37] VITALS: BP 103/64; PULSE 60; RESP 18; O2SAT 95
--- NOTE | 2016-10-31 14:04 | NUR ---
CHANGE PERSON spoke with Angela with [facility] and they can accept pt today. GYPSY Rios
--- NOTE | 2016-10-31 14:23 | PCM.DIMED ---
Discharge Instructions Date of Service Oct 31, 2016 Dates of Hospitalization Oct 26, 2016 at 20:56 Discharge Diagnosis Discharge Diagnosis 1. Subarachnoid hemorrhage, traumatic, POA. Improving 2. Dementia, POA. Stable 3. Hypertension, POA 4. End-of-life care with hospice at intermediate facility. Diet No restrictions Activity No restrictions James Kay MD Oct 31, 2016 14:23
[2016-10-31] MEDS ORDERED: TRAZ-115 PO (14:26)
[2016-10-31] MEDS ORDERED: HAL05 PO ×2 (14:26)
[2016-10-31] MEDS ORDERED: MEMA5TAB15 PO (14:26)
[2016-10-31] MEDS ORDERED: CITA10TA9 PO (14:26)
[2016-10-31] MEDS ORDERED: MORP100S5 PO (14:27)
[2016-10-31] MEDS ORDERED: LORA2VIA28 PO (14:30)
--- NOTE | 2016-10-31 15:05 | PCM.DC.MED ---
Discharge Summary Date of Service Oct 31, 2016 Dates of Hospitalization Date of Hospital Admission Oct 26, 2016 at 20:56 Date of Discharge: Oct 31, 2016 Providers: Admitting Physician: Crista Pérez MD Primary Care Physician: Janiya Hobbs MD Attending Physician: Crista Pérez MD Diagnosis at Time of Discharge Diagnosis at Time of Discharge 1. Subarachnoid hemorrhage, traumatic, POA. Improving 2. Dementia, POA. Stable 3. Hypertension, POA 4. End-of-life care with hospice at alf facility. Consultations Palliative care Procedures XRay, CTs & MRIs Serial CTs indicating subarachnoid hemorrhage with enlarging appearance and size of bleed on the second scan Other Diagnostics Brief History This is a 86-year-old male with recently progressing dementia who just moved into an assisted living secure unit at [facility] in [place]. Today, in the dining room, he was witnessed to fall out of his chair onto his right occiput. There is no loss of consciousness. There was some bleeding and so he was brought to the emergency department where he was noted to have an abrasion of the right occiput and a small contrecoup subarachnoid hemorrhage of the left frontal area. He is now admitted for observation of this intracerebral bleed and potential discharge back to his assisted living tomorrow. If there is progression neurologically then a neurology consult should be considered in the context of no significant intervention being appropriate at his stage of dementia. Hospital Course Hospital course. This is a pleasant patient with severe dementia who probably had a fall. CT scan indicated a probable traumatic subarachnoid hemorrhage. The patient was also hypertensive initially. He was transferred to the second floor and treated with nicardipine drip. This is then weaned. The patient's family met with medical staff component cannot really decide to pursue hospice initial patient. Discharge planning followed. He was ultimately accepted at a alf facility for end of life care Exam Vital Signs (Last) Date Time Temp Pulse Resp B/P Pulse Ox O2 Delivery O2 Flow Rate FiO2 10/31/16 13:37 37.1 60 18 103/64 95 Room Air Exam Arousable. Call. Normal scalp Symmetric pupils Neck supple. Lungs are clear, normal effort. Heart is regular without murmur. Abdomen is soft nondistended Extremities free of edema. Pedal pulses Test 10/27/16 09:30 10/28/16 16:29 White Blood Count 4.9th/mm3 (3.8-10.1) Red Blood Count 3.94mil/mm3 (4.40-5.80) Hemoglobin 12.2g/dL (13.8-17.2) Hematocrit 36.1% (41.0-50.0) Mean Corpuscular Volume 91.6fL (81-100) Mean Corpuscular Hemoglobin 31.0pg (27.0-35.0) Mean Corpuscular Hemoglobin Concent 33.8% (32.0-37.0) Red Cell Distribution Width 14.1% (12.3-15.4) Platelet Count 108bil/L (150-400) Neutrophils (%) (Auto) 77.4% (40-74) Lymphocytes (%) (Auto) 15.2% (14-46) Monocytes (%) (Auto) 7.2% (4-12) Eosinophils (%) (Auto) 0.2% (0-5) Basophils (%) (Auto) 0% (0-3) Prothrombin Time 11.1sec (8.1-12.5) Prothromb Time International Ratio 1.04ratio Sodium Level 139mEq/L (134-144) Potassium Level 4.8mEq/L (3.5-5.2) Chloride Level 102mEq/L (97-108) Carbon Dioxide Level 24mmol/L (18-29) Blood Urea Nitrogen 25mg/dL (8-27) Creatinine 0.94mg/dL (0.76-1.27) Estimat Glomerular Filtration Rate 81mL/min (>59) Glucose Level 86mg/dL (60-99) Calcium Level 8.7mg/dL (8.5-10.1) Phosphorus Level 2.7mg/dL (2.5-4.9) Magnesium Level 1.7mg/dL (1.6-2.6) Total Bilirubin 1.1mg/dL (0.0-1.2) Aspartate Amino Transf (AST/SGOT) 25U/L (0-50) Alanine Aminotransferase (ALT/SGPT) 17U/L (0-44) Alkaline Phosphatase 87U/L (25-160) Total Protein 6.0g/dL (6.4-8.4) Albumin 3.7g/dL (3.4-5.0) Hold Purple Top Tube Received (Received) Discharge Medications Discharge Medications Citalopram (Citalopram) 10 Mg Tablet 10 MG PO DAILY Prescribed by: ANA MARÍA GIBSON MD Haloperidol (Haloperidol) 0.5 Mg Tablet 0.5 MG PO at 1400 daily (Reported) Haloperidol (Haloperidol) 0.5 Mg Tablet 0.5 MG PO QAM Prescribed by: ANA MARÍA GIBSON MD Haloperidol (Haloperidol) 0.5 Mg Tablet 1 MG PO HS Prescribed by: ANA MARÍA GIBSON MD Lamotrigine (Lamotrigine) 25 Mg Tablet 50 MG PO BID (Reported) Memantine HCl (Memantine HCl) 5 Mg Tablet 5 MG PO BID Prescribed by: ANA MARÍA GIBSON MD Trazodone (Trazodone) 50 Mg Tablet 50 MG PO HS Prescribed by: ANA MARÍA GIBSON MD As needed Lorazepam (Ativan) 2 Mg/1 Ml Vial 2 MG PO QID PRN PRN anxiety Prescribed by: ANA MARÍA GIBSON MD Morphine Sulfate Oral Concentrate (Roxanol Oral Concentrate) 100 Mg/5 Ml (20 Mg/ Ml) Solution 0.5 ML PO QID PRN PRN For Pain Prescribed by: ANA MARÍA GIBSON MD Followup Plan Disposition: [facility] nursing [facility]. For end-of-life care. Discharge Diet: No restrictions Discharge Activity: No restrictions Time spent 40 minutes Ana María Gibson MD Oct 31, 2016 15:05
--- NOTE | 2016-10-31 15:40 | NUR ---
activity Pt sleepy all morning, doing q2 hour turns, Pt woke up more around noon when was here, pt eat a thing of ice cream, a magic cup, and 2 puddings, resting comfortably right now.
--- NOTE | 2016-10-31 15:51 | NUR ---
Social Work: Discharge Data: Pt is on day 5 of hospitalization. EMR reviewed, d/c orders are in. PERFORATOR OPERATOR OIL WELL faxed paperwork to [facility], S transportation set up for 4:00pm. No further d/c planning needs. PERFORATOR OPERATOR OIL WELL will continue to follow if needs arise. Assessment: Pt who is independent at baseline. Plan: Pt will d/c to [facility] at 4:00pm via BLS. No further d/c planning needs. PERFORATOR OPERATOR OIL WELL will continue to follow if needs arise. GYPSY Rios
--- NOTE | 2016-10-31 16:15 | NUR ---
Discharge Pt left via BLS to [facility] at 1615 with all belongings, IV d/c'd, report called over to Angela SANTO. family at bedside.
== END 2016-10-31 16:14 | DRG 86 ==
LOC: SED 17:33 → EDSEX 17:33 → EDBD 17:33 → OSC 20:56 → OBSVTOIN 20:56 → OSC 10-27 13:33 → CCU 10-27 21:06 → PCC 10-28 09:39 → MOC 10-30 19:31
PROVIDERS: ADMIT Family Medicine; ATTEND Family Medicine
DX: S06.6X0A Traumatic subarachnoid hemorrhage without loss of consciousness, initial encounter (principal); F02.81 Dementia in other diseases classified elsewhere, unspecified severity, with behavioral disturbance; I68.0 Cerebral amyloid angiopathy; G31.83 Neurocognitive disorder with Lewy bodies; I10 Essential (primary) hypertension; R40.2362 Coma scale, best motor response, obeys commands, at arrival to emergency department; R40.2142 Coma scale, eyes open, spontaneous, at arrival to emergency department; R40.2242 Coma scale, best verbal response, confused conversation, at arrival to emergency department; S01.91XA Laceration without foreign body of unspecified part of head, initial encounter; W01.0XXA Fall on same level from slipping, tripping and stumbling without subsequent striking against object, initial encounter; Y92.009 Unspecified place in unspecified non-institutional (private) residence as the place of occurrence of the external cause